=== PATIENT | male | born 1960 | race Caucasian/White ===

== ENCOUNTER 2016-09-14 17:09 | Emergency (ER) | payer BC ==
[~2016-09-14] VITALS: Ht 266.7 cm; Wt 88.6 kg
[2016-09-14 17:20] VITALS: Ht 266.7 cm; Wt 88.6 kg
--- NOTE | 2016-09-14 18:39 | ERPDOC ---
Departure Disposition Decision Date: September 14, 2016 Disposition Decision Time: 21:30 (ELISA PIKE APRN) Disposition: 01 DISCHARGED HOME, SELF-CARE Impression Impression (ELISA PIKE APRN) Impression: Primary Impression: RLQ abdominal pain Condition: Improved Seen By: Mid-level only (ELISA PIKE APRN) Patient Instructions: Abdominal Pain (ED) Problems/Meds/Labs Reviewed?: Yes Medications reviewed and manag: Yes (ELISA PIKE APRN) Additional Instructions: No reason was found for your RLQ abdominal pain. Your CT scan did not show any acute findings in your abdomen and that your appendix is normal. Your labs did not indicate any acute findings. You make take OTC ibuprofen 600-800mg every 8 hours as needed for pain with food. Follow Friday with your PCP if your symptoms have not improved for re- evaluation. You may return to the ED. Follow up care ordered?: Yes Mental Status: Alert, Oriented (ELISA PIKE APRN) HPI - Abdominal Pain General Chief Complaint: Abdominal Pain Stated Complaint: PAIN IN LOWER ABD ( RIGHT SIDE) Time Seen by Provider: 18:38 Source: patient (ELISA PIKE APRN) Time Seen by Provider: 18:38 (GEOFF HUGHES DO) HPI - Abdominal Pain Initial Comments To 56-year-old male presents to ER with right lower quadrant pain. Patient states that pain started yesterday when he was out mowing the lawn. Pain did decrease and has waxed and waned in intensity. Pain has increased this afternoon. Denies fever, chills, nausea, vomiting, or difficulty urinating. Pain is not exacerbated by movement. Occurred At: home Duration: 12-24 hrs Pain Scale: Now: 5/10, Worst: 9/10 Quality: sharpness Location: RLQ Radiation: no radiation Modifying Factors: WORSE WITH: palpation Associated Symptoms: DENIES: back pain, chest pain, diaphoresis, fatigue, fever /chills, headache, heartburn, nausea/vomiting, rash, shortness of breath, swelling/mass in abdomen, syncope, weakness (ELISA PIKE APRN) Allergies: Coded Allergies: Penicillins (Verified Allergy, Unknown, 09/14/16) Past History Past Medical History Metabolic: DENIES: diabetes Cardiac: DENIES: angina Respiratory: DENIES: asthma GI: DENIES: constipation, gallbladder disease, pancreatitis, ulcers Male: DENIES: renal insufficiency Neurological: DENIES: seizures Musculoskeletal: DENIES: osteoarthritis Psychological: DENIES: depression (RAFAEL PIKES A WIRE MILL OPERATOR) Surgical History Joint: other (ankle) (ELISA PIKE WIRE MILL OPERATOR) Family History Family PMH: FOUND: other (noncontributory) (ELISA PIKE WIRE MILL OPERATOR) Social History Current Occupational Status: employed (ELISA PIKE APRN) Review of Systems Constitutional Constitutional: DENIES: chills, dizziness, fever, weakness (RAFAEL PIKES A WIRE MILL OPERATOR) Eyes General: DENIES: erythema, exudate Lids/Accessories: DENIES: erythema, swelling Vision: DENIES: blurring (LEISA PIKE A WIRE MILL OPERATOR) ENMT Ears: DENIES: pain Sinuses: DENIES: congestion, rhinorrhea Mouth/Throat: DENIES: sore throat (RAFAEL PIKES A WIRE MILL OPERATOR) Cardiovascular Cardiac: DENIES: chest pain, murmur Rhythm/Rate: DENIES: palpitations (RAFAEL PIKES A WIRE MILL OPERATOR) Pulmonary Respiratory: DENIES: cough, dyspnea (RAFEAL PIKES A WIRE MILL OPERATOR) GI Upper Abdomen: DENIES: nausea, pain, vomiting Lower Abdomen: pain, see HPI, DENIES: diarrhea (RAFAEL PIKES A WIRE MILL OPERATOR) General: DENIES: dysuria, pain (RAFAEL PIKES A WIRE MILL OPERATOR) Musculoskeletal General: DENIES: joint pain, pain, tenderness (RAFAEL PIKES A WIRE MILL OPERATOR) Integumentary Skin: DENIES: color change, itching, rash (RAFAEL PIKES A WIRE MILL OPERATOR) Neurological General: DENIES: ataxia, change in strength, numbness, paralysis/paresis, weakness (RAFAEL PIKES A WIRE MILL OPERATOR) Psychiatric Psychiatric: DENIES: anxiety, depression, nervousness (RAFAEL PIKES A WIRE MILL OPERATOR) Physical Exam General General Nourishment: well nourished, well developed, adult General Body Habitus: well groomed (RAFAEL PIKES A WIRE MILL OPERATOR) Vitals and Pain First Documented Vital Signs Date Time Temp Pulse Resp B/P Pulse Ox O2 Delivery O2 Flow Rate FiO2 09/14/16 17:20 98.4 71 18 139/72 95 Room Air (GEOFF HUGHES DO) Vitals and Pain Weight: Kilograms: 88.630 Height (feet): 6 Height (inches): 33.00 Triage Pain Scale: (ELISA PIKE WIRE MILL OPERATOR) Eyes (brief) Eyes Brief: found: EOMI (ELISA PIKE WIRE MILL OPERATOR) ENMT (brief) ENMT Brief: NOT FOUND: nasal exudate, nasal swelling (RAFAEL PIKES A WIRE MILL OPERATOR) Neck (brief) Neck: FOUND: trachea midline (RAFAEL PIKES Shruti WIRE MILL OPERATOR) Respiratory (brief) Respiratory: FOUND: clear all valladares, equal bilaterally, symmetrical (RAFAEL PIKES A WIRE MILL OPERATOR) Cardiovascular (brief) Cardiac: FOUND: regular rate, regular rhythm (ELISA PIKE WIRE MILL OPERATOR) Abdomen Inspection: NOT FOUND: distention Palpation: FOUND: McBurney's point tender, Rosving's sign, involuntary guarding , soft, tender (TTP RLQ), voluntary guarding Auscultation: FOUND: hypoactive (x4) (ELISA PIKE WIRE MILL OPERATOR) Musculoskeletal (brief) Musculoskeletal Brief: NOT FOUND: deformity, loss of motion (ELISA PIKE WIRE MILL OPERATOR) Integumentary (brief) Integumentary Brief: FOUND: dry, pink, warm (RAFAEL PIKES Shruti WIRE MILL OPERATOR) Neurologic (brief) Neurological Brief: FOUND: motor-no gross deficits, sensory-no gross deficits ( ELISA PIKE WIRE MILL OPERATOR) Psychiatric (brief) Psychiatric Brief: FOUND: alert, normal affect, oriented (RAFAEL PIKES Shruti WIRE MILL OPERATOR ) Differential Diagnoses Considering: Appendicitis, Constipation, Diverticulitis, Renal Colic, UTI (ELISA PIKE WIRE MILL OPERATOR) Progress Results/Orders Medications Current ED Medications Sodium Chloride (Normal Saline IV) 1,000 ml @ 125 mls/hr Q8H ONCE IV Last administered on 09/14/16t 18:59; Start 09/14/16 at 18:47; Stop 09/15/16 at 02:46; Status DC Hydromorphone HCl (Dilaudid) 0.5 mg O ONCE IV ; Start 09/14/16 at 19:30; Stop at 19:31; Status DC Ondansetron HCl (Zofran) 4 mg O ONCE IV ; Start 09/14/16 at 19:30; Stop 09/14/16 at 19:31; Status DC Iohexol 1 bottle 1 bottle STK-MED ONCE .ROUTE ; Start 09/14/16 at 20:28; Stop 09/14/16 at 20:29; Status DC Sodium Chloride (NS) 100 ml @ As Directed STK-MED ONCE .ROUTE ; Start 09/14/16 at 20:28; Stop 09/14/16 at 20:29; Status DC Sodium Chloride (Iv Flush) 10 ml STK-MED ONCE .ROUTE ; Start 09/14/16 at 20:28; Stop 09/14/16 at 20:29; Status DC Ketorolac Tromethamine (Toradol) 30 mg O ONCE IV Last administered on t 21:55; Start 09/14/16 at 21:45; Stop 09/14/16 at 21:46; Status DC (GEOFF HUGHES DO) Progress Progress CBC, CMP and UA unremarkable Patient declined pain medication at this time. I discussed labs/CT findings with patient and answered question. I discussed that I could find no etiology for his RLQ pain. Patient is discharged home improved. Patient verbalized understanding of treatment plan, close follow up with PCP and return precautions. (ELISA PIKE APRN) CT CT : CT: Abd/Pelvis IV contrast Interpretation: Normal (normal appendix, no acute abdominal findings), Faxed Report (ELISA PIKE APRN) ELISA PIKE APRN September 14, 2016 18:39 GEOFF HUGHES DO September 16, 2016 01:16 Concent 34.0GM/DL RDW Standard Deviation 37.7FL Platelet Count 187T/MM3 Mean Platelet Volume 9.8UM3 Immature Granulocyte % (Auto) 0.1% Neutrophils (%) (Auto) 57.5% Lymphocytes (%) (Auto) 30.6% Monocytes (%) (Auto) 6.7% Eosinophils (%) (Auto) 4.7% Basophils (%) (Auto) 0.4% Absolute Immature Granulocyte (auto 0.01T/MM3 Absolute Neutrophils (auto) 4.7T/MM3 Absolute Lymphocytes (auto) 2.5T/MM3 Absolute Monocytes (auto) 0.6T/MM3 Absolute Eosinophils (auto) 0.4T/MM3 Absolute Basophils (auto) 0.0T/MM3 Turbidity < 20 Sodium Level 144MEQ/L Potassium Level 3.7MEQ/L Chloride Level 109MEQ/L Carbon Dioxide Level 23MEQ/L Anion Gap 12MEQ/L Blood Urea Nitrogen 21.0MG/DL Creatinine 0.9MG/DL Glomerular Filtration Rate Calc 87 BUN/Creatinine Ratio 23RATIO Glucose Level 104MG/DL Calculated Osmolality 280MOSM/KG Calcium Level 9.6MG/DL Total Bilirubin 0.60MG/DL Icterus Index < 2 Aspartate Amino Transf (AST/SGOT) 24U/L Alanine Aminotransferase (ALT/SGPT) 40U/L Alkaline Phosphatase 76U/L Total Protein 7.0G/DL Albumin 4.4G/DL Globulin 2.6G/DL Albumin/Globulin Ratio 1.7RATIO Chemistry Specimen Hemolysis < 15 Urine Collection Type Voided-not cc-midstr Urine Color Yellow Urine Turbidity Clear Urine pH 6.5 Urine Specific [place] <=1.005 Urine Protein Negative Urine Glucose (UA) Negative Urine Ketones Negative Urine Blood Negative Urine Nitrite Negative Urine Bilirubin Negative Urine Urobilinogen 0.2EU/DL Urine Leukocyte Esterase Negative Urinalysis Comment Microscopic not ind. Medications Current ED Medications Sodium Chloride (Normal Saline IV) 1,000 ml @ 125 mls/hr Q8H ONCE IV Last administered on 09/14/16 18:59; Start 09/14/16 at 18:47; Stop 09/15/16 at 02:46 Hydromorphone HCl (Dilaudid) 0.5 mg O ONCE IV ; Start 09/14/16 at 19:30; Stop at 19:31; Status DC Ondansetron HCl (Zofran) 4 mg O ONCE IV ; Start 09/14/16 at 19:30; Stop 09/14/16 at 19:31; Status DC Iohexol 1 bottle 1 bottle STK-MED ONCE .ROUTE ; Start 09/14/16 at 20:28; Stop 09/14/16 at 20:29; Status DC Sodium Chloride (NS) 100 ml @ As Directed STK-MED ONCE .ROUTE ; Start 09/14/16 at 20:28; Stop 09/14/16 at 20:29; Status DC Sodium Chloride (Iv Flush) 10 ml STK-MED ONCE .ROUTE ; Start 09/14/16 at 20:28; Stop 09/14/16 at 20:29; Status DC Ketorolac Tromethamine (Toradol) 30 mg O ONCE IV Last administered on 5/6/ 17at 21:55; Start 09/14/16 at 21:45; Stop 09/14/16 at 21:46; Status DC CT CT : CT: Abd/Pelvis IV contrast Interpretation: Normal (normal appendix, no acute abdominal findings), Faxed Report ELISA PIKE WIRE MILL OPERATOR September 14, 2016 18:39
[2016-09-14] MEDS ORDERED: NORMAL SALINE 1,000 ML IV ONE (18:47)
[2016-09-14] MEDS ORDERED: ASPI81TA2 PO (19:04)
[2016-09-14 19:19] LABS: BASOPHILS % (AUTO) 0.4 % (0-2); EOSINOPHILS # (AUTO) 0.4 T/MM3 (0-0.5); EOSINOPHILS % (AUTO) 4.7 % (0-4); HCT - HEMATOCRIT 40.9 % (41-53); HGB - HEMOGLOBIN 13.9 GM/DL (13.5-17.5); IMMATURE GRANULOCYTE # (AUTO) 0.01 T/MM3 (0.00-0.03); IMMATURE GRANULOCYTE % (AUTO) 0.1 % (0.0-0.5); LYMPHOCYTES # (AUTO) 2.5 T/MM3 (1-4.8); LYMPHOCYTES % (AUTO) 30.6 % (23-45); MEAN CORPUSCULAR HGB 29.1 UUG (26-34); MEAN CORPUSCULAR VOLUME 85.7 UM3 (80-100); MEAN PLATELET VOLUME 9.8 UM3 (9.4-12.4); MONOCYTES # (AUTO) 0.6 T/MM3 (0-0.8); MONOCYTES % (AUTO) 6.7 % (0-9.0); NEUTROPHILS #(AUTO)-ABSOLUTE 4.7 T/MM3 (1.8-7.7); NEUTROPHILS % (AUTO) 57.5 % (33-66); RED BLOOD COUNT 4.77 M/MM3 (4.50-5.90); WBC - WHITE BLOOD COUNT 8.2 T/MM3 (4.5-11.0)
[2016-09-14 19:24] LABS: ALBUMIN 4.4 G/DL (3.5-5.0); ALBUMIN/GLOBULIN RATIO 1.7 RATIO (1.1-2.2); ALKALINE PHOSPHATASE 76 U/L (38-126); ALT (SGPT) 40 U/L (21-72); ANION GAP 12 MEQ/L (5-15); AST (SGOT) 24 U/L (17-59); BUN/CREATININE RATIO 23 RATIO (6-26); CALCIUM 9.6 MG/DL (8.4-10.2); CHLORIDE 109 MEQ/L (98-107); CO2 - CARBON DIOXIDE 23 MEQ/L (22-30); CREATININE 0.9 MG/DL (0.8-1.5); GLOMERULAR FILTRATION RATE 87; GLUCOSE 104 MG/DL (75-110); POTASSIUM 3.7 MEQ/L (3.6-5); SODIUM 144 MEQ/L (134-144)
[2016-09-14] MEDS ORDERED: ONDANSETRON 4mg/2ml INJECTION IV ONE (19:30)
[2016-09-14] MEDS ORDERED: HYDROMORPHONE 2mg/ml INJECTION IV ONE (19:30)
[2016-09-14 19:36] LABS: BLOOD, URINE NEGATIVE (NEGATIVE); COLOR,URINE YELLOW (YELLOW); LEUKOCYTE ESTERASE ,URINE NEGATIVE (NEGATIVE); NITRITE,URINE NEGATIVE (NEGATIVE); UROBILINOGEN,URINE 0.2 EU/DL (NORMAL)
--- NOTE | 2016-09-14 19:49 | NUR ---
STATUS PT RESTING ON CART. STATES IMPROVEMENT IN PAIN AT THIS TIME - 07/19. DENIES NEED FOR PAIN AND/OR NAUSEA MEDICATION AT THIS TIME. DENIES NEEDS.
[2016-09-14] MEDS ORDERED: IOHEXOL 300 MG/ML 100ml INJECTION ONE (20:28)
[2016-09-14] MEDS ORDERED: NORMAL SALINE 100 ML ONE (20:28)
[2016-09-14] MEDS ORDERED: SALINE FLUSH 10ml SYRINGE ONE (20:28)
--- NOTE | 2016-09-14 20:28 | NUR ---
IMAGING PT TO IMAGING AT THIS TIME.
--- NOTE | 2016-09-14 20:47 | NUR ---
IMAGING PT RETURN TO ROOM FROM IMAGING VIA CART AT THIS TIME.
[2016-09-14] MEDS ORDERED: KETOROLAC 30mg/ml INJECTION IV ONE (21:45)
[2016-09-14 22:15] VITALS: BP 138/78; PULSE 61; RESP 18; TEMP 98.4; O2SAT 96
--- NOTE | 2016-09-14 22:15 | NUR ---
DEPART DI PROVIDED BY DEONNA ROSALES. WRITTEN DI FOR ABDOMINAL PAIN PROVIDED. IV SITE REMOVED PRIOR TO DISMISSAL. PT VITAL SIGNS CLEARED FROM MONITOR AFTER PT DISMISSAL PRIOR TO BEING PRINTED. PT'S VITALS STABLE THROUGH OUT VISIT.
--- NOTE | 2016-09-15 08:22 | DI ---
Indication: ITS.REASON: RLQ pain PROCEDURE: CT ABD/PELVIS W/CONTRAST ONLY: Encounter: Initial Comparison: None Technique: Axial CT images were performed through the abdomen and pelvis after the administration of intravenous contrast. Coronal and sagittal two-dimensional reformats. Automated Exposure Control and Iterative Reconstruction dose reducing techniques were utilized. Contrast: Omnipaque 300 100 mL Findings: Mild atelectasis in the lung bases. The liver is normal. The gallbladder, spleen, pancreas and adrenal glands are within normal limits. 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 No abdominal or pelvic adenopathy. The bladder is normal. Prostate and rectum are normal. No evidence of a bowel obstruction. The appendix is normal. Bone windows are unremarkable for age. Impression: No acute disease process seen. There is a preliminary report by [facility]. .
== END 2016-09-14 22:15 | disposition home or self-care (01) ==
LOC: ED 17:09
DX: R10.31 Right lower quadrant pain (principal)
CPT/HCPCS: 74177; 80053; 81003; 85025; 96361; 96374; 99284; J1885; J7030; J7050; Q9967